=== PATIENT | female | born 1995 | race African-American/Black ===

== ENCOUNTER 2016-12-07 21:39 | Emergency (ER) | payer BC ==
[~2016-12-07] VITALS: Ht 172.7 cm; Wt 68.2 kg
[2016-12-07 21:41] VITALS: BP 152/94; TEMP 98.7
[2016-12-07 22:51] VITALS: PULSE 66
== END 2016-12-07 22:53 | disposition home or self-care (01) ==
LOC: COL.ER 21:39
DX: S61.012A Laceration without foreign body of left thumb without damage to nail, initial encounter (principal); W26.0XXA Contact with knife, initial encounter; Y92.000 Kitchen of unspecified non-institutional (private) residence as the place of occurrence of the external cause; Z23 Encounter for immunization